=== PATIENT | female | born 1945 | race Caucasian/White ===

== ENCOUNTER → 2016-10-30 | Outpatient (CLI) | payer OTHER, MEDICARE | LOC: BMCIMAGING 10:35 | PROVIDERS: ATTEND Registered Nurse General Practice | DX: R05 Cough (principal); R06.2 Wheezing; R50.9 Fever, unspecified; Z85.43 Personal history of malignant neoplasm of ovary ==

== ENCOUNTER 2017-03-10 15:12 | Emergency (ER) | payer OTHER, MEDICARE ==
--- NOTE | 2017-03-10 15:54 | CPEKG ---
Heart Rate: 111 RR Interval: 541 P-R Interval: 144 QRSD Interval: 86 QT Interval: 324 QTC Interval: 441 P Elgin: 51 QRS [place]gin: -22 T Wave [place]: -6 EKG Severity - ABNORMAL ECG - EKG Impression: SINUS TACHYCARDIA EKG Impression: BORDERLINE LEFT AXIS DEVIATION EKG Impression: CONSIDER ANTERIOR INFARCT EKG Impression: BORDERLINE T ABNORMALITIES, DIFFUSE LEADS Electronically Signed By: Rangel Guerrero 10-Mar-2017 16:12:09
[2017-03-10] MEDS ORDERED: ASPIRIN 81 MG CHEWABLE TAB PO ONE (16:02)
[2017-03-10] MEDS ORDERED: NS 1,000 ML IV ONE (16:02)
--- NOTE | 2017-03-10 16:09 | EDPHY ---
H & P Stated Complaint: hx ovarian ca/liver mets/resected 3 weeks ago/pain luq and l shoulder Time Seen by Provider: 03/10/17 15:52 HPI/ROS: CHIEF COMPLAINT: Left upper quadrant shoulder pain HISTORY OF PRESENT ILLNESS: Patient is a 71-year-old female with a history of ovarian cancer with metastasis to her colon and liver. She is 3 weeks status post liver lobe resection. She had some left upper quadrant pain at that time that they told her was from the surgery. It resolved after 3 days. It returned today and then for about 10 minutes this afternoon she had left shoulder pain as well. She denies shortness of breath. She denies chest pain. Her pain resolved with oxycodone. She has not had a fever. She has not been diaphoretic. No nausea vomiting or constipation. She has chronic diarrhea. She is currently on chemotherapy with a doctor suraj Hendrickson at at [facility]. She has no cardiac history. She has not had any recent fevers or cough. REVIEW OF SYSTEMS: Constitutional: denies: chills, fever, recent illness, recent injury EENTM: denies: blurred vision, double vision, nose congestion Respiratory: denies: cough, shortness of breath Cardiac: See HPI Gastrointestinal/Abdominal: denies: abdominal pain, diarrhea, nausea, vomiting, blood streaked stools Genitourinary: denies: dysuria, frequency, hematuria, pain Musculoskeletal: denies: joint pain, muscle pain Skin: denies: lesions, rash, jaundice, bruising Neurological: denies: headache, numbness, paresthesia, tingling, dizziness, weakness Hematologic/Lymphatic: denies: blood clots, easy bleeding, easy bruising Immunologic/allergic: denies: HIV/AIDS, transplant EXAM: GENERAL: Well-appearing, well-nourished and in no acute distress. HEAD: Atraumatic, normocephalic. EYES: Pupils equal round and reactive to light, extraocular movements intact, sclera anicteric, conjunctiva are normal. ENT: TMs normal, nares patent, oropharynx clear without exudates. Moist mucous membranes. NECK: Normal range of motion, supple without lymphadenopathy or JVD. LUNGS: Breath sounds clear to auscultation bilaterally and equal. No wheezes rales or rhonchi. HEART: Regular rate and rhythm without murmurs, rubs or gallops. ABDOMEN: Soft, nontender, normoactive bowel sounds. No guarding, no rebound. No masses appreciated. BACK: No CVA tenderness, no spinal tenderness, step-offs or deformities EXTREMITIES: Normal range of motion, no pitting or edema. No clubbing or cyanosis. NEUROLOGICAL: Cranial nerves II through XII grossly intact. Normal speech, normal gait. 5/5 strength, normal movement in all extremities, normal sensation PSYCH: Normal mood, normal affect. SKIN: Warm, dry, normal turgor, no visible rashes or lesions. Source: Patient Exam Limitations: No limitations - Personal History Current Tetanus/Diphtheria Vaccine: Yes - Medical/Surgical History Hx Asthma: No Hx Chronic Respiratory Disease: No Hx Diabetes: No Hx Cardiac Disease: No Hx Renal Disease: No Hx Cirrhosis: No Hx Alcoholism: No Hx HIV/AIDS: No Hx Splenectomy or Spleen Trauma: No Other PMH: ovarian cancer, HTN liver resection - Family History Significant Family History: No pertinent family hx - Social History Smoking Status: Former smoker Alcohol Use: Sober Drug Use: None Constitutional: Initial Vital Signs Temperature (C) 36.8 C 03/10/17 15:27 Heart Rate 114 H 03/10/17 15:27 Respiratory Rate 22 H 03/10/17 15:27 Blood Pressure 98/75 L 03/10/17 15:27 O2 Sat (%) 94 03/10/17 15:27 O2 Delivery Mode Room Air Allergies/Adverse Reactions: No Known Allergies Allergy (Verified 03/10/17 15:27) Home Medications: Medication Instructions Recorded Chemotherapy .MONTHLY 01/24/14 Gabapentin [Neurontin 100 MG (*)] 01/24/14 Lisinopril [Zestril 10 mg (*)] 01/24/14 oxyCODONE/APAP 5/325 [Percocet 01/24/14 5/325 (RX)] Oxycontin 03/10/17 Medical Decision Making - Diagnostics EKG Interpretation: An EKG obtained and was read and documented in trace view. Please see trace view for full reading and report. Sinus tachycardia, no acute ischemic changes Imaging: Discussed imaging studies w/ call center operations manager Radiologist ED Course/Re-evaluation: 5:45 p.m. I discussed the case with Dr. Nunez from [facility] in [place]. He accepted transfer. We discussed the CT and lab results. We will call the access line to arrange transfer. 6:40 p.m. the patient has a room and [facility]. We will transfer her there. Patient is refusing ambulance and will go by private vehicle. I have completed in the paperwork. Differential Diagnosis: Partial list of the Differential diagnosis considered include but were not limited to; metastasis, PE, empyema, acute coronary disease and although unlikely based on the history and physical exam, I also considered arrhythmia, pericarditis. - Data Points Laboratory Results: Laboratory Results 03/10/17 16:10 03/10/17 16:10 Medications Given: Discontinued Medications Aspirin (Aspirin) 324 mg PO EDNOW ONE Stop: 03/10/17 16:03 Last Admin: 03/10/17 17:21 Dose: 324 mg Sodium Chloride (Ns) 1,000 mls @ 0 mls/hr IV ONCE ONE; Wide Open PRN Reason: Protocol Stop: 03/10/17 16:03 Last Admin: 03/10/17 16:19 Dose: 1,000 mls Departure - Departure Disposition: Acute Care Hospital Not [facility] Clinical Impression: Abdominal pain Qualifiers: Abdominal location: left upper quadrant Qualified Code(s): R10.12 - Left upper quadrant pain Condition: Fair Referrals: Rosa Ruvalcaba MD [Primary Care Provider] - As per Instructions
[2017-03-10 16:17] LABS: % IMMATURE GRANULYOCYTES 0.6 % (0.0-1.1); ABSOLUTE IMMATURE GRANULOCYTES 0.08 10^3/uL (0.00-0.10); ADD DIFF? NO; ADD MORPH? NO; ADD SCAN? NO; ATYPICAL LYMPHOCYTE FLAG 0 (0-99); FRAGMENT RBC FLAG 0 (0-99); HEMATOCRIT 33.7 % (38.0-47.0); HEMOGLOBIN 10.7 g/dL (12.6-16.3); LEFT SHIFT FLG 0 (0-99); LIPEMIA HEMOLYSIS FLAG 80 (0-99); MEAN CELL HEMOGLOBIN 27.2 pg (27.9-34.1); MEAN CELL HEMOGLOBIN CONCENTR. 31.8 g/dL (32.4-36.7); MEAN CELL VOLUME 85.8 fL (81.5-99.8); MEAN PLATELET VOLUME 9.8 fL (8.7-11.7); PLATELET CLUMPS FLAG 30 (0-99); PLATELET COUNT 245 10^3/uL (150-400); RED BLOOD CELL COUNT 3.93 10^6/uL (4.18-5.33); RED CELL DISTRIBUTION WIDTH 15.7 % (11.5-15.2)
[2017-03-10 16:27] LABS: ALANINE AMINOTRANSFERASE 48 IU/L (9-52); ALBUMIN 3.5 g/dL (3.5-5.0); ALKALINE PHOSPHATASE 93 IU/L (38-126); ANION GAP 12 mEq/L (8-16); ASPARTATE AMINOTRANSFERASE 26 IU/L (14-46); BILIRUBIN-CONJUGATED 0.6 mg/dL (0.0-0.5); BILIRUBIN-UNCONJUGATED 0.4 mg/dL (0.0-1.1); CALCIUM 8.8 mg/dL (8.5-10.4); CARBON DIOXIDE 22 mEq/l (22-31); CHLORIDE 102 mEq/L (97-110); CREATININE 1.1 mg/dL (0.6-1.0); GLOMERULAR FILTRATION RATE 49; GLUCOSE 149 mg/dL (70-100); POTASSIUM 4.1 mEq/L (3.5-5.2); SODIUM 136 mEq/L (134-144); TOTAL PROTEIN 6.1 g/dL (6.3-8.2)
[2017-03-10 16:35] LABS: INR 1.12 (0.83-1.16); PROTIME(PATIENT) 14.3 SEC (12.0-15.0)
[2017-03-10 16:36] LABS: APTT 27.3 SEC (23.0-38.0)
[2017-03-10 16:39] LABS: TROPONIN I < 0.012 ng/mL (0-0.034)
[2017-03-10] MEDS ORDERED: IOPAMIDOL (ISOVUE 370) 100 ML BTL IV ONE (16:40)
[2017-03-10 19:11] VITALS: BP 99/74; PULSE 97; RESP 18; TEMP 98.4; O2SAT 96
== END 2017-03-10 19:09 | disposition short-term general hospital (02) ==
DX: R10.12 Left upper quadrant pain (principal); I10 Essential (primary) hypertension; E86.9 Volume depletion, unspecified; Z85.43 Personal history of malignant neoplasm of ovary; Z87.891 Personal history of nicotine dependence
CPT/HCPCS: 71275; 74177; 93005; 96360; 99285; Q9967; 82947-QW